=== PATIENT | female | born 1970 | race Caucasian/White ===

== ENCOUNTER 2020-06-15 01:42 | Emergency (ER) | payer OTHER ==
[~2020-06-15] VITALS: Ht 160 cm; Wt 56.7 kg
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
--- NOTE | 2020-06-15 01:48 | NUR ---
at bedside for evaluation.
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
[2020-06-15] MEDS ORDERED: HYDROCODONE/APAP 5/325MG TABLET ONE (01:53)
--- NOTE | 2020-06-15 01:57 | NUR ---
[employer] AT BEDSIDE
[2020-06-15] MEDS ORDERED: HYDROCODONE/APAP 5/325MG TABLET PO ONE (02:00)
--- NOTE | 2020-06-15 02:16 | NUR ---
latricia (family friend) [phone]
[2020-06-15] MEDS ORDERED: LIDOCAINE 1%-EPI 1:100,000 20 ML VIAL ONE (03:00)
[2020-06-15] MEDS ORDERED: HYDR-4209 PO (03:11)
--- NOTE | 2020-06-15 03:38 | NUR ---
JOY IS HERE TO DESK MAKER THE PATIENT.
--- NOTE | 2020-06-15 03:40 | NUR ---
PATIENT AMBULATED WITH A STEADY GAIT.
[2020-06-15 03:41] VITALS: BP 123/68
--- NOTE | 2020-06-15 03:44 | NUR ---
Patient discharged to home in stable condition. Written and verbal after care instructions given. Patient verbalizes understanding of instruction.pt. ambulatory with a steady gait .
== END 2020-06-15 03:41 | disposition home or self-care (01) ==
LOC: ER 01:45
DX: S01.01XA Laceration without foreign body of scalp, initial encounter (principal); S40.212A Abrasion of left shoulder, initial encounter; S40.211A Abrasion of right shoulder, initial encounter; M79.641 Pain in right hand; M79.644 Pain in right finger(s); Y08.89XA Assault by other specified means, initial encounter; Y93.89 Activity, other specified; Y92.89 Other specified places as the place of occurrence of the external cause; Y99.8 Other external cause status
CPT/HCPCS: 12001; 70450; 71045; 72125; 73030; 73080; 73130; 99285; A6403 ×2; J3490